=== PATIENT | male | born 1985 | race Caucasian/White ===

== ENCOUNTER 2018-10-15 19:32 | Emergency (ER) | payer MEDICAID ==
[~2018-10-15] VITALS: Ht 182.9 cm; Wt 74.0 kg
[2018-10-15 20:48] LABS: BASOPHILS # (AUTO) 0.02 x10^3/uL (0-0.1); BASOPHILS % (AUTO) 0 % (0-1); EOSINOPHILS # (AUTO) 0.18 x10^3/uL (0-0.4); EOSINOPHILS % (AUTO) 3 % (1-7); LYMPHOCYTES # (AUTO) 1.48 x10^3/uL (1-3.4); LYMPHOCYTES % (AUTO) 23 % (22-44); MD NO; MEAN CORPUSCULAR HGB CONC 33.2 g/dL (33.2-36.2); MEAN CORPUSCULAR VOLUME 93.3 fL (81-97); MONOCYTES # (AUTO) 0.59 x10^3/uL (0.2-0.8); MONOCYTES % (AUTO) 9 % (2-9); NEUTROPHILS % (AUTO) 65 % (42-75); PLATELET COUNT 402 x10^3/uL (130-400); RED BLOOD COUNT 4.62 x10^6/uL (4.38-5.82); RED CELL DISTRIBUTION WIDTH 13.7 % (9.4-14.8)
[2018-10-15 20:59] LABS: ALBUMIN 3.8 g/dL (3.4-5.0); ANION GAP 6 mmol/L (5-15); CALCIUM 8.5 mg/dL (8.5-10.1); CHLORIDE 109 mmol/L (98-107)
[2018-10-15 21:03] LABS: ALANINE AMINOTRANSFERASE 27 U/L (12-78); ALKALINE PHOSPHATASE 79 U/L (45-117); BILIRUBIN,TOTAL 0.7 mg/dL (0.2-1.0); C-REACTIVE PROTEIN, QUANT 0.79 mg/dL (0.02-0.49); CREATININE 1.11 mg/dL (0.7-1.3); TOTAL PROTEIN 7.8 g/dL (6.4-8.2)
[2018-10-15] MEDS ORDERED: HYDROcodone/APAP 5/325 TABLET ONE (21:17)
--- NOTE | 2018-10-15 21:22 | NUR ---
PT ON CRUTCHES. HAD RIGHT ANKLE SURGERY AT [facility] 4 MONTHS AGO. LAST WEEK HAD TO HAVE INCISION CLEANED OUT. WAS TOLD NOT TO WALK ON ANKLE BUT HAS BEEN. ALSO HAS NOT BEEN TAKING ANTIBIOTICS. RIGHT OUTER ANKLE INCSION WITH SUTURES INTACT. SCANT AMOUNT OF SEROSANGENOUS DRAINAGE. REDNESS TO SITE THAT RADIATES DOWN TO PINKY TOE. VSS. UPDATED ON POC
[2018-10-15] MEDS ORDERED: HYDROcodone/APAP 5/325 TABLET PO ONE (21:30)
[2018-10-15 21:43] LABS: HCT (SEDRATE) 43.1 % (39.2-51.8)
[2018-10-15 22:31] VITALS: BP 112/71
--- NOTE | 2018-10-15 22:33 | NUR ---
APPLIED FOAM DRESSING TO INCISION SITE. REVIEWED CARE OF INCISION. EXPRESSED THE IMPORTANCE OF TAKING THE PRESCRIBED MEDICATION.
== END 2018-10-15 22:36 | disposition home or self-care (01) ==
LOC: ED 21:49
DX: T81.32XA Disruption of internal operation (surgical) wound, not elsewhere classified, initial encounter (principal); L03.115 Cellulitis of right lower limb; Z72.9 Problem related to lifestyle, unspecified
CPT/HCPCS: 36415; 80053; 80307; 85025; 85651; 86140; 99284

== ENCOUNTER 2019-05-17 21:55 | Emergency (ER) | payer SELFPAY ==
[~2019-05-17] VITALS: Ht 175.3 cm; Wt 73.4 kg
--- NOTE | 2019-05-17 22:11 | NUR ---
RN to bedside after assessment by provider. Patient changed into hospital gown. Patient is not well kept, hands soiled. RN attempting to complete clinical screen but fell asleep mid blood draw x2. Patient arousable to loud noises, but falls back asleep within a minute. Patient does not give a complete story for reason for presenting in ER. Phlebotomy at bedside, will reattempt clinical screen when safer to do so (patient jerked arm having blood draw when aroused first time)
[2019-05-17 22:32] LABS: ALBUMIN 3.9 g/dL (3.4-5.0); ANION GAP 7 mmol/L (5-15); CALCIUM 8.8 mg/dL (8.5-10.1); CHLORIDE 108 mmol/L (98-107); CREATININE 0.89 mg/dL (0.7-1.3)
[2019-05-17 22:36] LABS: ALANINE AMINOTRANSFERASE 57 U/L (12-78); ALKALINE PHOSPHATASE 85 U/L (45-117); BILIRUBIN,TOTAL 0.7 mg/dL (0.2-1.0); TOTAL PROTEIN 7.6 g/dL (6.4-8.2)
--- NOTE | 2019-05-17 22:40 | NUR ---
ROUNDS COMPLETED. SLEEPING. NO DISTRESS. RESP ARE EVEN AND NONLABORED.
[2019-05-17 22:41] LABS: BASOPHILS # (AUTO) 0.04 x10^3/uL (0-0.1); BASOPHILS % (AUTO) 1 % (0-1); EOSINOPHILS # (AUTO) 0.19 x10^3/uL (0-0.4); EOSINOPHILS % (AUTO) 3 % (1-7); LYMPHOCYTES # (AUTO) 2.05 x10^3/uL (1-3.4); LYMPHOCYTES % (AUTO) 27 % (22-44); MD NO; MEAN CORPUSCULAR HEMOGLOBIN 32.5 pg (27.5-34.5); MEAN CORPUSCULAR HGB CONC 33.9 g/dL (33.2-36.2); MEAN CORPUSCULAR VOLUME 95.9 fL (81-97); MEAN PLATELET VOLUME 7.4 fL (7.4-10.4); MONOCYTES # (AUTO) 0.67 x10^3/uL (0.2-0.8); MONOCYTES % (AUTO) 9 % (2-9); NEUTROPHILS # (AUTO) 4.69 x10^3/uL (1.8-6.8); NEUTROPHILS % (AUTO) 61 % (42-75); PLATELET COUNT 375 x10^3/uL (130-400); RED BLOOD COUNT 4.78 x10^6/uL (4.38-5.82); RED CELL DISTRIBUTION WIDTH 13.3 % (9.4-14.8)
[2019-05-17 22:56] LABS: ACETONE, SERUM Negative (Negative)
--- NOTE | 2019-05-18 00:50 | NUR ---
AWAKE. ALERT. READY FOR D/C.
[2019-05-18 00:51] VITALS: BP 122/76
== END 2019-05-18 01:05 | disposition home or self-care (01) ==
LOC: ED 22:25
DX: E86.0 Dehydration (principal); F10.10 Alcohol abuse, uncomplicated; R53.83 Other fatigue; R53.1 Weakness; F17.200 Nicotine dependence, unspecified, uncomplicated
CPT/HCPCS: 36415; 80053; 80307; 82010; 82800; 85025; 99283

== ENCOUNTER 2020-10-07 21:33 | Emergency (ER) | payer SELFPAY ==
[~2020-10-07] VITALS: Ht 188 cm; Wt 65.0 kg
[2020-10-07 21:46] VITALS: BP 108/69
--- NOTE | 2020-10-07 22:10 | NUR ---
pt provided a bottle of water and two packs of crackers, pt able to consumed offered po without complication. pt ready to dc.
== END 2020-10-07 22:32 | disposition home or self-care (01) ==
LOC: ED 21:45
DX: F15.129 Other stimulant abuse with intoxication, unspecified (principal); R42 Dizziness and giddiness; Z72.9 Problem related to lifestyle, unspecified; R94.31 Abnormal electrocardiogram [ECG] [EKG]; Z59.0 Homelessness
CPT/HCPCS: 93005; 99283